=== PATIENT | female | born 1975 | race Hispanic/Latino ===

== ENCOUNTER 2019-04-21 15:35 | Emergency (ER) | payer OTHER ==
[2019-04-21] MEDS ORDERED: KETOROLAC 30 MG/ML INJ ONE (16:42)
[2019-04-21] MEDS ORDERED: HYDROCODONE/APAP 7.5/325 MG TAB ONE (16:42)
--- NOTE | 2019-04-21 17:14 | RAD REPORT ---
EXAM DESCRIPTION: CT - CTHCSPWOC - 04/21/2019 4:39 pm CLINICAL HISTORY: Headache, neck pain and pressure, upper extremity radiculopathy COMPARISON: None. TECHNIQUE: Axial 5 mm thick images of the head were obtained. Axial 2 mm thick images of the cervic al spine were obtained with sagittal and coronal reconstruction images generated and reviewed. All CT scans are performed using dose optimization technique as appropriate and may include automated exposure control or mA/KV adjustment according to patient size. FINDINGS: No intracranial hemorrhage, mass, edema or acute intracranial finding. No suspicion for ac marvin infarction. No extra-axial fluid collections. Mastoid air cells and paranasal sinuses are clear. No globe or orbit abnormality seen. Cervical body height and alignment are normal. No disk space narrowing. No fracture or acute bony abn ormality. Small hemangioma seen in the C3 body. No paraspinal mass or hematoma. IMPRESSION: Negative CT head examination for acute or significant finding. Negative CT cervical spine examination for acute or significant finding.
--- NOTE | 2019-04-21 17:21 | ER ---
Nurse's Notes [facility] Name: Viviana Ocampo Age: 43 yrs Sex: Female : 1975 Arrival Date: 04/21/2019 Time: 15:38 Bed 5 Private MD: Diagnosis: Paresthesia of skin;Cervicalgia Presentation: 04/21 15:41 Presenting complaint: Patient states: "I feel a lot of pressure in the back of my neck lp1 and I went to my doctor last week and she gave me medicine but it's not helping"; States feeling tingling sensation in her hands and left side of face; No relief with Methocarbamol prescription; Increased pain with movement; denies any injury. Transition of care: patient was not received from another setting of care. Onset of symptoms was April 21, 2019. Risk Assessment: Do you want to hurt yourself or someone else? Patient reports no desire to harm self or others. Initial Sepsis Screen: Does the patient meet any 2 criteria?. Care prior to arrival: None. 15:41 Method Of Arrival: Ambulatory lp1 15:41 Acuity: EAMON 3 lp1 16:10 Initial Sepsis Screen: Does the patient have a suspected source of infection? No. aa5 Patient's initial sepsis screen is negative. 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 - Social history:: Smoking status: Patient/guardian denies using tobacco. - Ebola Screening: : No symptoms or risks identified at this time. Screenin:46 Abuse screen: Denies threats or abuse. Denies injuries from another. Nutritional lp1 screening: No deficits noted. Tuberculosis screening: No symptoms or risk factors identified. Fall Risk None identified. Assessment: 16:10 General: Appears comfortable, Behavior is calm, cooperative. Pain: Complains of pain in aa5 left side of neck and left side of face Pain does not radiate. Pain currently is 7 out of 10 on a pain scale. Quality of pain is described as pressure, Pain began "weeks ago" Is continuous. Neuro: Level of Consciousness is awake, alert, obeys commands, Oriented to person, place, time, situation, Unemployment Insurance Hearing Officer are equal bilaterally Moves all extremities. Gait is steady, Speech is normal, Facial symmetry appears normal, Pupils are PERRLA, Reports tingling to [place] hands and feet. Cardiovascular: Heart tones S1 S2 present Rhythm is regular. Respiratory: Airway is patent Respiratory effort is even, unlabored, Respiratory pattern is regular, symmetrical. GI: No signs and/or symptoms were reported involving the gastrointestinal system. : No signs and/or symptoms were reported regarding the genitourinary system. EENT: No signs and/or symptoms were reported regarding the EENT system. Derm: Skin is pink, warm \\T\\ dry. Musculoskeletal: Range of motion: intact in all extremities. 16:27 Reassessment: Pt in CT, will administer medication when pt returns . aa5 16:45 Reassessment: Patient is alert, oriented x 3, equal unlabored respirations, skin aa5 warm/dry/pink. Pt states "I feel a little bit of chest pressure", PA notified and EKG ordered. . 17:42 Reassessment: Patient is alert, oriented x 3, equal unlabored respirations, skin aa5 warm/dry/pink. Vital Signs: 15:45 BP 121 / 81; Pulse 61; Resp 18; Temp 98.2(O); Pulse Ox 97% on R/A; Weight 68.04 kg (R); lp1 Height 5 ft. 2 in. (157.48 cm); Pain 7/10; 16:45 BP 118 / 78; Pulse 64; Resp 18 S; Pulse Ox 99% on R/A; Pain 5/10; aa5 15:45 Body Mass Index 27.44 (68.04 kg, 157.48 cm) lp1 ED Course: 15:38 Patient arrived in ED. mr 15:43 Triage completed. lp1 15:43 Arm band placed on right wrist. lp1 15:48 Aria Yeung, PJ is Primary Nurse. aa5 15:50 Rolo Erwin NP is PHCP. pm1 15:50 Behzad Laurent MD is Attending Physician. pm1 15:50 PHCP role handed off by Rolo Erwin NP jr8 15:50 Daljit Craft PA is PHCP. jr8 16:10 Patient has correct armband on for positive identification. Placed in gown. Bed in low aa5 position. Call light in reach. Side rails up X 1. 16:29 Patient moved to ND via wheelchair. jg6 16:31 No provider procedures requiring assistance completed. aa5 16:55 EKG done, by semiconductor equipment technician. reviewed by Daljit SKINNER. 3 17:19 Aleksandar Tan MD is Referral Physician. jr8 17:42 Patient did not have IV access during this emergency room visit. aa5 Administered Medications: 16:40 Drug: [place] (7.5 mg-325 mg) 1 tabs Route: PO; aa5 17:00 Follow up: Response: No adverse reaction aa5 16:40 Drug: TORadol - Ketorolac 15 mg Route: IM; Site: right deltoid; aa5 17:00 Follow up: Response: No adverse reaction aa5 Outcome: 17:22 Discharge ordered by MD. jr8 17:42 Discharged to home ambulatory, with family. aa5 17:42 Condition: stable 17:42 Discharge instructions given to patient, Instructed on discharge instructions, follow up and referral plans. Demonstrated understanding of instructions, follow-up care. 17:45 Patient left the ED. iw Signatures: Rebecca Brar Riya Garcia, RN RN iw Aria Yeung RN RN aa5 Sahara Tapia, PJ RN lp1 Daljit Craft PA PA jr8 Rolo Erwin, TRACK LINER OPERATOR TRACK LINER OPERATOR pm1 Tiffanie Hilario 3 Sintia Hermosillo jg6
--- NOTE | 2019-04-21 17:22 | EDPHYS ---
Physician Documentation [facility] Name: Viviana Ocampo Age: 43 yrs Sex: Female : 1975 Arrival Date: 04/21/2019 Time: 15:38 Bed 5 Private MD: ED Physician Behzad Laurent HPI: 04/21 16:37 This 43 yrs old Female presents to ER via Ambulatory with complaints of Neck jr8 Problem. 16:37 The patient or guardian complains of pain, tenderness. The symptoms are located jr8 diffusely. Onset: The symptoms/episode began/occurred suddenly, 2 week(s) ago, and became persistent. Context: The problem was sustained at an unknown location, The neck injury/problem resulted from from unknown cause. Associated signs and symptoms: Pertinent positives: Paresthesias. The pain radiates. Modifying factors: The symptoms are alleviated by nothing. the symptoms are aggravated by movement. Severity of symptoms: At their worst the symptoms were moderate, in the emergency department the symptoms are unchanged. The patient has not experienced similar symptoms in the past. The patient has been recently seen by a physician: the patient's primary care provider. Denies having previous head or neck injury. Saw PCP and was given muscle relaxants without relief. Now having paresthesias of the hands and feet . 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 - Social history:: Smoking status: Patient/guardian denies using tobacco. - Ebola Screening: : No symptoms or risks identified at this time. ROS: 16:37 Eyes: Negative for injury, pain, redness, and discharge, ENT: Negative for injury, jr8 pain, and discharge, Cardiovascular: Negative for chest pain, palpitations, and edema, Respiratory: Negative for shortness of breath, cough, wheezing, and pleuritic chest pain, Abdomen/GI: Negative for abdominal pain, nausea, vomiting, diarrhea, and constipation, Back: Negative for injury and pain, MS/Extremity: Negative for injury and deformity, Skin: Negative for injury, rash, and discoloration. 16:37 Neck: Positive for pain with movement, pain at rest, stiffness, tenderness. 16:37 Neuro: Positive for numbness, tingling, Negative for altered mental status, dizziness, gait disturbance, headache, hearing loss, loss of consciousness, seizure activity, speech changes, syncope, near syncope, tinnitus, tremor, visual changes, weakness. Exam: 16:37 Eyes: Pupils equal round and reactive to light, extra-ocular motions intact. Lids and jr8 lashes normal. Conjunctiva and sclera are non-icteric and not injected. Cornea within normal limits. Periorbital areas with no swelling, redness, or edema. ENT: Nares patent. No nasal discharge, no septal abnormalities noted. Tympanic membranes are normal and external auditory canals are clear. Oropharynx with no redness, swelling, or masses, exudates, or evidence of obstruction, uvula midline. Mucous membranes moist. Cardiovascular: Regular rate and rhythm with a normal S1 and S2. No gallops, murmurs, or rubs. Normal PMI, no JVD. No pulse deficits. Respiratory: Lungs have equal breath sounds bilaterally, clear to auscultation and percussion. No rales, rhonchi or wheezes noted. No increased work of breathing, no retractions or nasal flaring. Abdomen/GI: Soft, non-tender, with normal bowel sounds. No distension or tympany. No guarding or rebound. No evidence of tenderness throughout. Back: No spinal tenderness. No costovertebral tenderness. Full range of motion. Skin: Warm, dry with normal turgor. Normal color with no rashes, no lesions, and no evidence of cellulitis. MS/ Extremity: Pulses equal, no cyanosis. Neurovascular intact. Full, normal range of motion. Neuro: Awake and alert, GCS 15, oriented to person, place, time, and situation. Cranial nerves II-XII grossly intact. Motor strength 5/5 in all extremities. Sensory grossly intact. Cerebellar exam normal. Normal gait. 16:37 Neck: External neck: tenderness, that is mild, of the left mid cervical area and left trapezius, C-spine: appears grossly normal, Thyroid: appears normal, Trachea: is midline with no obvious abnormalities, ROM/movement: pain, that is mild, with any movement, Lymph nodes: no appreciated lymphadenopathy. Vital Signs: 15:45 BP 121 / 81; Pulse 61; Resp 18; Temp 98.2(O); Pulse Ox 97% on R/A; Weight 68.04 kg (R); lp1 Height 5 ft. 2 in. (157.48 cm); Pain 7/10; 16:45 BP 118 / 78; Pulse 64; Resp 18 S; Pulse Ox 99% on R/A; Pain 5/10; aa5 15:45 Body Mass Index 27.44 (68.04 kg, 157.48 cm) lp1 MDM: 15:51 Patient medically screened. jr8 17:18 Data reviewed: vital signs, nurses notes, radiologic studies, CT scan. Data jr8 interpreted: Pulse oximetry: on room air is 97 %. Interpretation: normal. Counseling: I had a detailed discussion with the patient and/or guardian regarding: the historical points, exam findings, and any diagnostic results supporting the discharge/admit diagnosis, radiology results, the need for outpatient follow up, a family practitioner, a neurologist, to return to the emergency department if symptoms worsen or persist or if there are any questions or concerns that arise at home. 17:18 ED course: No acute cervical or intracranial findings to suggest the symptoms that jr8 patient has been describing. Feeling better here. Hemodynamically stable. Discussed with patient that she needs to f/u with neurology at this time for further work up if symptoms were to persist . 04/21 16:08 Order name: CT Head C Spine jr8 04/21 17:15 Order name: CT; Complete Time: 17:18 EDMS 04/21 17:25 Order name: EKG - Nurse/Tech: [id number]; Complete Time: 17:25 aa5 Administered Medications: 16:40 Drug: [place] (7.5 mg-325 mg) 1 tabs Route: PO; aa5 17:00 Follow up: Response: No adverse reaction aa5 16:40 Drug: TORadol - Ketorolac 15 mg Route: IM; Site: right deltoid; aa5 17:00 Follow up: Response: No adverse reaction aa5 Disposition: 17:52 Co-signature as Attending Physician, Behzad Laurent MD. rn Disposition: 04/21/19 17:22 Discharged to Home. Impression: Paresthesia of skin, Cervicalgia. - Condition is Stable. - Discharge Instructions: Musculoskeletal Pain, Paresthesia, Neck Exercises, Radicular Pain. - Medication Reconciliation Form, Thank You Letter, Antibiotic Education, Prescription Opioid Use form. - Follow up: Aleksandar Tan MD; When: 5 - 6 days; Reason: Recheck today's complaints, Continuance of care, Re-evaluation by your physician. - Problem is new. - Symptoms have improved. Signatures: Dispatcher [employer] EDRiya Booth RN RN iw Behzad Laurent MD MD rn Calderon, Audri, RN RN aa5 Sahara Tapia RN RN lp1 Daljit Craft PA PA jr8 Corrections: (The following items were deleted from the chart) 17:45 17:22 04/21/2019 17:22 Discharged to Home. Impression: Paresthesia of skin; iw Cervicalgia. Condition is Stable. Forms are Medication Reconciliation Form, Thank You Letter, Antibiotic Education, Prescription Opioid Use. Follow up: Aleksandar Tan; When: 5 - 6 days; Reason: Recheck today's complaints, Continuance of care, Re-evaluation by your physician. Problem is new. Symptoms have improved. jr8
--- NOTE | 2019-04-22 07:47 | EKG ---
Test Date: 2019-04-21 Test Time: 16:49:14 Automatic Folder Seamer: CAMMIE MEASUREMENT RESULTS: Intervals: Rate: 58 FL: 140 QRSD: 80 QT: 432 QTc: 424 [place]: P: 45 FL: 140 QRS: 48 T: 44 INTERPRETIVE STATEMENTS: Sinus bradycardia Otherwise normal ECG No previous ECG available for comparison Electronically Signed On 04-22-19 07:45:58 CDT by Harpreet Carballo
== END 2019-04-21 17:45 | disposition home or self-care (01) ==
LOC: ER 15:35
DX: M54.2 Cervicalgia (principal); R20.2 Paresthesia of skin; Z88.5 Allergy status to narcotic agent
CPT/HCPCS: 70450; 72125; 93005; 96372; 99284